=== PATIENT | female | born 1985 | race Caucasian/White ===

== ENCOUNTER 2023-07-20 20:33 | Emergency (ER) | payer BC, OTHER ==
[2023-07-20] MEDS ORDERED: Ketorolac 10 MG Tab PO ONE (20:58)
== END 2023-07-20 22:05 | disposition home or self-care (01) ==
LOC: JP.ED 20:33
DX: S40.021A Contusion of right upper arm, initial encounter (principal); Z88.1 Allergy status to other antibiotic agents; X58.XXXA Exposure to other specified factors, initial encounter
CPT/HCPCS: 93971; 99283; A9270